=== PATIENT | male | born 1960 | race Caucasian/White ===

== ENCOUNTER 2025-04-11 22:52 | Emergency (ER) | payer MEDICARE, SELFPAY ==
[2025-04-11 22:58] LABS: Glucose - Point of Care 118 mg/dl (70-99)
[2025-04-11] MEDS: NSS 1000 IV (23:03)
[2025-04-11] MEDS: LEVOPHED 250 IV (23:09)
[2025-04-11 23:19] VITALS: BP 154/75
--- NOTE | 2025-04-11 23:21 | ED.GENMED ---
History of Present Illness
General
Chief Complaint: CODE
Source: ambulance crew
Exam Limitations: clinical condition
Time Seen by Provider: 04/11/25 23:06
Nursing documentation reviewed up to this point in time: agreed with
History of Present Illness
History of Present Illness:
64-year-old female with unknown medical history presents to the emergency department via EMS in cardiac arrest. Apparently bystanders saw patient walking down the road, EMS was called and apparently on their arrival he was stuporous and had
witnessed bradycardic arrest. He received ACLS in the field x 30 minutes before ROSC was achieved and transported to the emergency room for treatment.
Review of Systems
Review of Systems
All Other Systems: Not applicable
Phy Exam
Physical Exam
Physical Exam:
General: Unresponsive in cardiac arrest
Head: Normocephalic, patient has obvious signs of facial trauma with swelling of the nasal bridge and blood on the face and nose
Eyes: Conjunctiva normal, pupils dilated and sluggish bilaterally
Throat: Intubated
Neck: Trachea midline
Lung: Bilateral breath sounds present
Heart: Cardiac arrest, extremities cold to touch
Abd: Soft, mildly distended
Neuro: Unresponsive
Skin: Cold and pale
Extremities: Cool to the touch, no edema, scrapes to the hands but no deformities
Scores
Heart Failure Risk
Heart Failure Risk Score: Not Applicable
Heart Score for Chest Pain Patients
STEMI patient?: Not applicable
Withdrawal Assessment of Alcohol
Withdrawal Assessment Completed?: Not applicable
Course
Orders/Labs/Results
Orders:
Orders
04/11/25 23:04
Portable Chest Xray [CR Chest Portable - 1 View] Urgent
Comment:
Reason For Exam: CODE
Reason Study Needs to be Portable: Patient Unstable
04/11/25 23:07
Electrocardiogram (*1) Urgent
Reason for Study: Other
Other Reason for Exam: cardiac arrest
EKG- Treatment ONCE
Rascon Placement- Treatment ONCE
Reason for insertion: I&O's Critical Care
Drug Screen, Urine [Urine Drug Abuse Screen] Urgent
Urinalysis Reflex To Culture Urgent
NORepinephrine 4 MG/250 ML [Levophed] 4 mg in 250 ml IV NOW
Initial dose in mcg/min, then titrate:: 2
Titrate to keep:: MAP > 65 mmHg
Titrate by mcg/min:: 1-2 mcg/min
Frequency of titrations (minutes):: 5
Maximum dose in ICU in mcg/min:: 30
Maximum dose in IMU in mcg/min:: 8
Maximum dose in IVU in mcg/min:: 4
Begin to taper infusion when:: Remained at goal for 4hrs
Taper by mcg/min:: 1-2 mcg/min
Frequency of taper (minutes) if patient maintains goal:: 30
Taper to off?: Yes
If infusion off & no longer maintaining goal:: Contact Provider
04/11/25 23:08
Influenza A+B Rapid Molecular Urgent
[facility] Source: Nasal Swab
Specimen Description:
0.9% Sodium Chloride 1000 ml [Nss] 1,000 ml IV BOLUS
04/11/25 23:09
HIV Combo Urgent
Hepatitis A IgM Antibody Urgent
Hepatitis B Core Ab, IgM Urgent
Hepatitis B Surface Antibody Urgent
Hepatitis B Surface Antigen Urgent
Hepatitis C Antibody Urgent
04/11/25 23:15
Blood Culture Q30M
[facility] Source: Blood/Venous
Specimen Description:
04/11/25 23:16
Alcohol Urgent
CPK [Creatine Phosphokinase] Urgent
Complete Blood Count/With Diff Urgent
Comprehensive Metabolic Panel Urgent
Free T4 Urgent
Lactate Level [Lactic Acid] Urgent
Lipase Urgent
Magnesium Urgent
Manual Differential Urgent
PTT Urgent
Phos [Phosphorus] Urgent
Prothrombin Time Urgent
TSH Reflex To Free T4 Urgent
Troponin I Urgent
04/11/25 23:23
ABG [Arterial Blood Gas] Urgent
%Oxygen/Room Air: 100% ambu
04/11/25 23:45
Blood Culture Q30M
[facility] Source: Blood/Venous
Specimen Description:
Dextrose 5%/Water 1000 ml [D5w] 1,000 ml Sodium Bicarbonate 150 meq IV 200 mls/hr
Abnormal Lab Results
04/11/25 04/11/25 04/11/25
22:56 23:16 23:23
RBC 6.24 H 10^6/uL
(4.70-6.10)
Hct 52.8 H %
(39.0-52.0)
MCHC 32.2 L g/dL
(33.0-37.0)
Segmented Neutrophils 19 L %
(42-75)
Monocytes (Manual) 10 H %
(2-9)
PT 17.7 H Sec
(11.4-14.6)
APTT 39.6 H Sec
(23.4-35.0)
pH 6.81 L*
(7.35-7.45)
pCO2 110 H* mmHg
(35-48)
HCO3 18.0 L mmol/L
(21-28)
ABG O2 Sat (Measured) 91.0 L %
(94-98)
Sodium 134 L mmol/L
(135-145)
Carbon Dioxide 13 L* mmol/L
(22-30)
Creatinine 1.4 H mg/dL
(0.7-1.3)
Glucose 151 H mg/dl
(70-99)
Lactic Acid 11.7 H* mmol/L
(0.7-2.0)
Phosphorus 8.7 H mg/dl
(2.5-4.5)
Magnesium 2.7 H mg/dl
(1.6-2.3)
AST 1946 H* U/L
(17-59)
ALT 1676 H* U/L
(0-50)
Creatine Kinase 259 H U/L
(55-170)
TSH (Reflex) 5.20 H uIU/ml
(0.47-4.68)
POC Glucose 118 H mg/dl
(70-99)
04/11/25 23:16
04/11/25 23:16
Vital Signs
Initial and Last Documented VS:
Initial Vital Signs
BP
154/75
04/11/25 23:19
Last Documented Vital Signs
Temp Pulse Resp BP Pulse Ox
36 C L 126 50 62/49 86
04/11/25 23:21 04/12/25 00:00 04/12/25 00:00 04/11/25 23:45 04/11/25 23:50
MDM/Problems Addressed
Differential Diagnosis Includes:
Differential diagnosis includes but not limited to: Hypothermia, dysrhythmia, acute UT, massive PE, brain bleed, electrolyte derangement wide
MDM/Problems Addressed:
64-year-old male presents via EMS in cardiac arrest. PEA arrest in the field, witnessed by EMS shortly after their arrival. Received 30 minutes of ACLS in the field before ROSC achieved. Had a cardiac arrest shortly after arrival here and was
resuscitated as documented in nursing run sheet�on and off PEA arrest for roughly 30 minutes here. Started on norepinephrine infusion. He was hypothermic on arrival and active rewarming efforts initiated to achieve normothermia. Broad-spectrum
labs sent off. Once/if stable send for CT head, CT cervical spine, CT facial bones, CT chest/abdomen/pelvis.
We did find a phone number for patient's sister Lali among his belongings ([phone]); she says that he has a history of CAD status post CABG. Lives alone does not have or children. He also has a brother Pravin who lives in the area and
she will call Pravin. I updated her that patient was in great condition and unlikely to survive.
Unfortunately after resuscitative efforts here in the emergency room for over an hour of off and on cardiac arrest patient was pronounced at 12:01 AM after 90 minutes total of ACLS (30 in field, 1 hour here in ED). Patient normothermic at the time.
Will call family to update and discussed with medical office manager.
Discussed with medical office manager Jossie, patient will be picked up by medical office manager tomorrow morning. Family updated on the phone.
Acute Exacerbation and/or Progression of Chronic Illness: HTN
*Radiology
Radiology exam reviewed: preliminary read by ED provider and radiology read reviewed
*Pulse Oximetry
SaO2: 89
Patient hypoxic: yes (89%)
*EKG
Interpreted by ED Provider?: Yes
Heart Rate: 88
Rate: normal
Rhythm: a-fib
Oran: normal axis
Interval: normal interval
QRS Pattern: right bundle branch block
Ischemia: non-specific ST changes
*Critical Care Note
Total Time (30-74mins, 75-104mins- exclusive of procedures): 61
comment:
Critical care statement: A total of 61 minutes of critical care time was provided for this patient. This includes management of unstable vital signs, evaluation of the patient at bedside, frequent reassessment, discussion with
consultants/hospitalist, and review of pertinent medical records. This time was separate from time utilized to perform any aforementioned documented procedures
Data Reviewed
Source: ambulance crew
ED Attending Note
-
Portions of this chart may have been created with voice recognition software.� Occasional wrong word or��sound alike� substitutions may have occurred due to the inherent limitations of voice recognition software.
Discharge Plan
Departure
Patient Disposition:
Date of Disposition: 04/12/25
Time of Disposition: 00:14
Discharge Problem:
Cardiac arrest
Referrals:
UNKNOWN,NO INTERVIEW [Family Provider]
Discharge Date and Time
Print Language: MOROCCAN
Pronouncement of
-
Called to see patient to pronounce.
No spontaneous heart tones or respirations noted.
Patient not responsive to verbal stimuli.
Patient is pronounced .
Time of : 12:01
Date of : 04/12/25
Cause of : cardiac arrest
Family Notified: Yes (Vera ([phone]))
[2025-04-11 23:30] VITALS: BP 158/117
[2025-04-11 23:31] LABS: B.E. -19.4 mmol/L; HCO3 18.0 mmol/L (21-28); O2 Saturation % 91.0 % (94-98); PO2 89 mmHg (83-108)
[2025-04-11 23:36] LABS: PCO2 110 mmHg (35-48)
[2025-04-11 23:40] LABS: INR 1.44; PT 17.7 Sec (11.4-14.6)
[2025-04-11 23:41] LABS: APTT 39.6 Sec (23.4-35.0)
[2025-04-11 23:43] VITALS: BP 96/58
[2025-04-11 23:45] VITALS: BP 62/49
[2025-04-11 23:52] LABS: Hematocrit 52.8 % (39.0-52.0); Hemoglobin 17.0 g/dL (13.0-18.0); Mean Corp Hgb Conc. 32.2 g/dL (33.0-37.0); Mean Corpuscular Volume 84.6 fL (80.0-94.0); Platelet Count 212 10^3/uL (130-400); Red Cell Dist. Width 13.2 % (11.5-14.5)
[2025-04-11 23:55] LABS: Albumin 4.2 g/dl (3.5-5.0); Alkaline Phosphatase 43 U/L (38-126); Blood Urea Nitrogen 14 mg/dl (9-20); Calcium 10.1 mg/dl (8.4-10.2); Carbon Dioxide 13 mmol/L (22-30); Chloride 101 mmol/L (98-107); Glucose 151 mg/dl (70-99); Lipase 264 U/L (23-300); Magnesium 2.7 mg/dl (1.6-2.3); Potassium 4.3 mmol/L (3.5-5.1); Sodium 134 mmol/L (135-145); Total Protein 6.9 g/dl (6.3-8.2); Troponin I 0.025 ng/ml; eGFR 55.78
[2025-04-12 00:11] LABS: ALT (SGPT) 1676 U/L (0-50); AST (SGOT) 1946 U/L (17-59)
--- NOTE | 2025-04-12 00:25 | RESPNOTE ---
Called down to room 40 in ED at 1046 for CPR in progress. Arrived 2 minutes after tiger text received. Pt came in shortly after that. Pt was being bagged in; took over bagging from EMS. Pt was pulseless, CPR started. Pt was intubated in the field
with 8.0 ETT/ 26 @ lip. Pt was easy to bag, ETCO2 was reading appropriately. Pt received CPR on and off from arrival time til about midnight. When pt had a pulse, pt was put on the vent. ABG obtained during this time period. CPR was stopped- pt
per Dr. House
[2025-04-12 00:42] LABS: Absolute Neutrophils -Man Diff 1.9 10^3/uL (1.4-6.5)
[2025-04-12 00:43] LABS: Normal RBC Morphology Yes; Platelets Checked Yes; Total Cells Counted 100
[2025-04-12 05:06] LABS: Hepatitis B Surface Antigen Negative (Negative)
[2025-04-12 05:23] LABS: Hepatitis C Antibody Negative (Negative)
== END 2025-04-12 03:30 | disposition expired ==
LOC: EMR 22:52
PROVIDERS: EMERGENCY PHYSICIAN Emergency Medicine
DX: I46.9 Cardiac arrest, cause unspecified (principal); I25.10 Atherosclerotic heart disease of native coronary artery without angina pectoris; Z95.1 Presence of aortocoronary bypass graft
CPT/HCPCS: 92950; 99291; 96374; 71045; 80053; 82077; 82550; 82805; 82962; 83605; 83690; 83735; 84100; 84439; 84443; 84484; 85025; 85610; 85730; 86705; 86706; 86709; 86803; 87340; 87389; 93005; 94002